=== PATIENT | male | born 1955 | race Caucasian/White ===

== ENCOUNTER 2018-11-30 14:38 | Emergency (ER) | payer OTHER, SELFPAY ==
[2017-02-08 13:41] VITALS: BMI 46.3
[2018-01-10 14:21] VITALS: BMI 47.5
[2018-11-30 14:39] VITALS: BP 137/81; PULSE 93; RESP 16; TEMP 36.7; O2SAT 95; BMI 47.5
--- NOTE | 2018-11-30 16:34 | ED.VISSUMM ---
- ER Visit Summary Date of Service: 11/30/18 Chief Complaint: Foot infection History of Present Illness: The patient is a 63 M with a history of diabetes. He presents for pain and swelling over his bilateral feet. He is concerned for an infection. He had these before and they require draining. He is having a lot of pain with weightbearing. Physical Examination: Afebrile and vital signs unremarkable. Patient has tenderness and swelling to his bilateral feet laterally at the fifth MTP joints. The overlying skin is normal in color. It is intact. There is no erythema or warmth. He has good range of motion, but the area is tender. He is neurovascular intact distally. Otherwise exam exam is unremarkable. Test Results: Bedside ultrasound showed no fluid collections. Emergency Department Course and Treatment: I do not believe the patient has an infection. He has no infectious symptoms. The skin is not red or warm. It is intact. Given his history of diabetes, I do not believe it is appropriate for me to incise or try to drain these areas. The ultrasound was reassuring. The patient likely has a bunionette. Patient will be treated with pain medicine. 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 Treatment Plan: As above Disposition: Discharge Impression: 1. Bilateral foot pain This note was generated with [employer] dictation software. It may contain incorrect words, spelling, and punctuation that were not noted in review of the chart prior to signing ED Disposition - Plan for ED Patient: Chief Complaint: Abscess Referrals: Fernie Valle MD [Primary Care Provider] -
--- NOTE | 2018-11-30 16:37 | ED.DCSUM_ITS ---
- ER Visit Summary Date of Service: 11/30/18 Chief Complaint: Foot infection History of Present Illness: The patient is a 63 M with a history of diabetes. He presents for pain and swelling over his bilateral feet. He is concerned for an infection. He had these before and they require draining. He is having a lot of pain with weightbearing. Physical Examination: Afebrile and vital signs unremarkable. Patient has tenderness and swelling to his bilateral feet laterally at the fifth MTP joints. The overlying skin is normal in color. It is intact. There is no erythema or warmth. He has good range of motion, but the area is tender. He is neurovascular intact distally. Otherwise exam exam is unremarkable. Test Results: Bedside ultrasound showed no fluid collections. Emergency Department Course and Treatment: I do not believe the patient has an infection. He has no infectious symptoms. The skin is not red or warm. It is intact. Given his history of diabetes, I do not believe it is appropriate for me to incise or try to drain these areas. The ultrasound was reassuring. The patient likely has a bunionette. Patient will be treated with pain medicine. 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 Treatment Plan: As above Disposition: Discharge Impression: 1. Bilateral foot pain This note was generated with [employer] dictation software. It may contain incorrect words, spelling, and punctuation that were not noted in review of the chart prior to signing ED Disposition - Plan for ED Patient: Chief Complaint: Abscess Referrals: Fernie Valle MD [Primary Care Provider] -
--- NOTE | 2018-11-30 16:37 | ED.DEP ---
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
[2018-11-30 16:50] VITALS: BP 136/76; BP 137/81; PULSE 86; PULSE 87; RESP 16; TEMP 36.9; O2SAT 98
== END 2018-11-30 16:51 | disposition home or self-care (01) ==
PROVIDERS: Emergency Provider Emergency Medicine; Family Provider Family Medicine; PCP Family Medicine
DX: M79.671 Pain in right foot (principal); M79.672 Pain in left foot; M79.89 Other specified soft tissue disorders; I25.10 Atherosclerotic heart disease of native coronary artery without angina pectoris; E11.9 Type 2 diabetes mellitus without complications; I10 Essential (primary) hypertension; E78.00 Pure hypercholesterolemia, unspecified; Z79.82 Long term (current) use of aspirin; Z79.4 Long term (current) use of insulin; Z79.84 Long term (current) use of oral hypoglycemic drugs; Z79.899 Other long term (current) drug therapy
CPT/HCPCS: 99282

== ENCOUNTER → 2019-01-19 05:45 | Outpatient (CLI) | payer OTHER, SELFPAY ==
[2017-02-08 13:41] VITALS: BMI 46.3
[2019-01-15 13:47] VITALS: BMI 48.1
--- NOTE | 2019-01-19 16:08 | STRESSREP ---
Stress Test Report Pharmacologic myocardial perfusion stress test. 63-year-old man with a history of chest pain. Medications: Norvasc, aspirin, metformin, Plavix, losartan. Stress protocol: Resting EKG demonstrates normal sinus rhythm with a rate of 77 bpm normal intervals are noted resting blood pressure 134/70 mmHg. 0.4 mg of regadenoson was infused per usual protocol followed by rapid intravenous saline flush injection continuous EKG monitoring was performed. Maximum heart rate attained was 89 bpm which was 55% maximum predicted heart rate the maximum workload was 1 metabolic equivalent. At rest there were no ST or T wave changes noted suggest abnormal flow reserve at peak infusion nonspecific ST-T wave changes were noted with no meet the criteria for abnormal flow reserve. Resting blood pressure 134/70 with a final blood pressure 130/60 mmHg. Peak blood pressure was 140/58 mmHg. Myocardial perfusion protocol. 15.0 mCi of technetium 99m sestamibi was injected at rest. 0.4 mg of regadenoson was infused per usual protocol peak infusion 45.0 mCi of technetium 99m sestamibi was injected stress images were obtained stress and rest images were reconstructed and compared in the short axis vertical long horizontal long axis. Gated images were also obtained per Perfusion SPECT analysis: Review of the stress images demonstrate normal uptake of tracer noted in all areas of the myocardium. The resting images similarly demonstrate normal uptake of tracer noted in all areas of the myocardium. No areas of reversibility are noted suggest ischemia no previous infarct is noted. Gated SPECT analysis: The gated ejection fraction is noted to be 59%. Conclusion: Normal pharmacologic myocardial perfusion stress test. Preserved ejection fraction.
== END ==
PROVIDERS: Family Provider Family Medicine; PCP Family Medicine; Referring Provider Internal Medicine Cardiovascular Disease; Visit Provider Internal Medicine Cardiovascular Disease
DX: I25.10 Atherosclerotic heart disease of native coronary artery without angina pectoris (principal); E11.9 Type 2 diabetes mellitus without complications; I10 Essential (primary) hypertension; E78.5 Hyperlipidemia, unspecified; R07.9 Chest pain, unspecified
CPT/HCPCS: 78452; 93017; A9500; A4216; J2785

== ENCOUNTER → 2019-07-20 13:20 | Outpatient (CLI) | payer OTHER, SELFPAY ==
[2017-02-08 13:41] VITALS: BMI 46.3
[2019-07-14 13:44] VITALS: BMI 50.4
== END ==
PROVIDERS: Family Provider Family Medicine; PCP Family Medicine; Referring Provider Family Medicine; Visit Provider Family Medicine
DX: Z00.00 Encounter for general adult medical examination without abnormal findings (principal)

== ENCOUNTER → 2019-08-06 07:38 | Outpatient (CLI) | payer OTHER, SELFPAY ==
[2017-02-08 13:41] VITALS: BMI 46.3
[2019-07-14 13:44] VITALS: BMI 50.4
--- NOTE | 2019-08-06 07:40 | ECHOCS_ITS ---
Reason For Study: DYSPNEA Procedure This was a 2D Doppler, Color Flow transthoracic echocardiogram. The study was technically difficult. Contrast injection was performed. Exam performed in department. Left Ventricle Normal LV size. Left ventricular systolic function is normal. The estimated ejection fraction is 65 %. Stage 2 diastolic dysfunction. No regional wall motion abnormalities noted. Right Ventricle Normal RV size. Normal systolic function. Atria The left atrium is moderately enlarged. The right atrium is moderately enlarged. Mitral Valve Normal mitral valve. Tricuspid Valve Normal tricuspid valve. Aortic Valve The aortic valve is not well visualized. Pulmonic Valve The pulmonic valve is not well visualized. Great Vessels Normal aortic root. The pulmonary artery is normal size. Normal inferior vena cava. Pericardium/Pleural No pericardial effusion. Medication 22 gauge I.V. with prn adaptor inserted into right arm. Diluted definity 4ml given slow IV push to enhance endocardial definition. MMode/2D Measurements & Calculations LVIDd: 5.8 cm IVSd: 1.2 cm Ao root diam: 3.9 cm LVIDs: 4.0 cm LVPWd: 1.2 cm RVDd: 4.4 cm FS: 31.1 % LAV(MOD-bp): 89.4 ml EDV(MOD-sp4): 213.7 ml EDV(MOD-sp2): 113.3 ml LAV(MOD-bp) Indexed: 32.3 ml/m2 ESV(MOD-sp4): 75.5 ml EF(MOD-sp2): 65.1 % LAV(MOD-sp2): 89.1 ml EF(MOD-sp4): 64.7 % LAV(MOD-sp4): 86.4 ml SV(MOD-sp4): 138.2 ml SV(MOD-sp2): 73.8 ml LA A4 area: 26.4 cm2 LA dimension(2D): 5.1 cm RA A4 area: 24.9 cm2 Time Measurements MV dec time: 0.22 sec Doppler Measurements & Calculations MV E max brayan: 100.6 cm/sec Lat Peak E' Brayan: 5.9 cm/sec Med Peak E' Brayan: 5.7 cm/sec MV A max brayan: 80.1 cm/sec E/E' lat: 17.1 E/E' med: 17.5 MV E/A: 1.3 MV V2 max: 121.1 cm/sec Ao V2 max: 129.5 cm/sec LV V1 max: 107.2 cm/sec MV max P.9 mmHg Ao max P.7 mmHg LV V1 max P.6 mmHg MV V2 mean: 71.0 cm/sec MV mean P.3 mmHg MV V2 VTI: 35.4 cm PA V2 max: 89.7 cm/sec MV P1/2t-pr_phl: 86.8 msec Interpretation Summary Normal LV size. Left ventricular systolic function is normal. The estimated ejection fraction is 65 %. Stage 2 diastolic dysfunction. Contrast injection was performed. Ordering Physician: Vic Jones/Grzegorz Ash Referring Physician: NICOLETTE ROBERTS Performed By: Sakina Plata, TESSACS, RVT
== END ==
PROVIDERS: Family Provider Family Medicine; PCP Family Medicine; Referring Provider Nurse Practitioner Family; Visit Provider Nurse Practitioner Family
DX: I25.10 Atherosclerotic heart disease of native coronary artery without angina pectoris (principal); R06.02 Shortness of breath; R06.00 Dyspnea, unspecified; R60.9 Edema, unspecified; Z95.5 Presence of coronary angioplasty implant and graft
CPT/HCPCS: 93306; Q9957; A4216; C8929

== ENCOUNTER → 2020-04-12 14:04 | Outpatient (CLI) | payer OTHER, SELFPAY ==
[2017-02-08 13:41] VITALS: BMI 46.3
[2020-02-09 10:25] VITALS: BMI 52.4
--- NOTE | 2020-04-12 | TISS_PTH ---
PATIENT: SHELDON HALL LOC: [facility] U#:[id number] AGE/SX: 69/M ROOM: RE04/12/[address]: Dr. Christos Roa DDS : 1955 BED: DIS: SPEC #: [id number] RECD: 04/12/20 11:58 STATUS: [place] REG #: [id number] GABE: 04/12/20 00:[address]: Christos Roa DEPT: SURGICAL PATHOLOGY RECD BY: Mac Solorzano ENTERED: 04/13/20 09:05 SP TYPE: Tissue Bx ESTRELLITA DR: Dr. 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 AM:carlita 04/14/20 MICROSCOPIC DESCRIPTION Slides are reviewed. GROSS DESCRIPTION Received in fixative is one container labeled with the patient's name and designated left buccal mucosa. The specimen consists of a polypoid fragment of pink-white mucosa. The specimen is inked, bisected and totally submitted in one cassette. / AM:carlita 04/13/20 TC:1 CPT: 34518
== END ==
PROVIDERS: PCP Family Medicine; Referring Provider Dentist Oral and Maxillofacial Surgery; Visit Provider Dentist Oral and Maxillofacial Surgery
DX: L98.9 Disorder of the skin and subcutaneous tissue, unspecified (principal)
CPT/HCPCS: 88305

== ENCOUNTER 2020-12-05 10:12 | Emergency (ER) | payer OTHER, SELFPAY ==
[2017-02-08 13:41] VITALS: BMI 46.3
[2020-02-09 10:25] VITALS: BMI 52.4
[2020-12-05 10:13] VITALS: BP 167/67; PULSE 96; RESP 26; TEMP 36.2; O2SAT 97; BMI 54.2
--- NOTE | 2020-12-05 10:27 | ED.VIS.GEN ---
History of Present Illness Chief Complaint: Shortness of Breath Informant: Patient Narrative: 64-year-old male presenting with elevated blood pressure. He states he was at physical therapy today when he noted his blood pressure. All he knows is that his blood pressure said 200. Patient had a mild headache at that time which has improved. His blood pressure is also improved. Physical therapy wanted him to come to the ER for evaluation. He has no chest pain. He does state that he gets dyspneic on exertion if he exerts himself hard and feels like this is what happened on the way into the ER. He does not have any shortness of breath currently. He denies fever, chills, myalgias, loss of taste or smell. - Past Medical History (1) Diabetes Status: Chronic (2) Sarcoidosis Status: Chronic (3) HTN (hypertension) Status: Chronic (4) HLD (hyperlipidemia) Status: Chronic Past Medical History - Allergies and Home Meds Allergies/Adverse Reactions: Allergies No Known Allergies Allergy (Verified 12/05/20 10:13) Primary Care Physician: Fernie Valle MD [Primary Care Provider] - Prior records reviewed: Yes Past Medical History: - - Reviewed in problem list Surgical History: noncontributory, - - lymph node bx, carpal tunnel. Lives: Spouse/ Significant Other Smoking Status: Never smoker Alcohol: None Drugs: None - Family History Paternal Family History: Family History (Last Updated 01/15/19 @ 13:57 by Nataly Oswald) Father CAD (coronary artery disease) Mother CAD (coronary artery disease) Brother CAD (coronary artery disease) Sister CAD (coronary artery disease) Family History: Reports: Heart Disease, - - early age Sibling Family History: Family History (Last Updated 01/15/19 @ 13:57 by Nataly Oswald) Father CAD (coronary artery disease) Mother CAD (coronary artery disease) Brother CAD (coronary artery disease) Sister CAD (coronary artery disease) Family History: Reports: Heart Disease - early age Review of Systems General: Denies: Chills, Fever, Sweats Eyes: Denies: Visual changes - bilaterally, Diplopia ENT: Denies: Rhinorrhea, Sore throat Cardiovascular: Reports: Heart racing. Denies: Chest pain Respiratory: Reports: Dyspnea on exertion - At baseline per patient. Denies: Cough, Sputum Gastrointestinal: Denies: Abdominal pain, Nausea Musculoskeletal: Denies: Myalgias, Arthralgias Skin: Denies: Rash, Abscess Neurological: Reports: Headache. Denies: Parasthesia, Numbness Psych: Denies: Depression, Anxiety Physical Exam Vital Signs/Narrative: Vital Signs Temp Pulse Resp BP Pulse Ox 12/05/20 10:13 97.1 F L 96 26 H 167/67 H 97 Inital Vital Signs reviewed: Yes General: Well nourished, No Acute Distress Head: Normocephalic, Atraumatic Eyes: Perrl, EOMI ENT: Moist mucous membranes, No rhinorrhea Cardiovascular: Regular rate, Regular rhythm Respiratory: No distress, CTA bilaterally Extremities: Nontender, No edema Skin: Normal color, No rash. Negative for: Cyanosis, Diaphoresis Neurological: Alert, Oriented x3, Cranial nerves II-XII grossly intact Psychological: Normal affect, Normal Mood Diagnostic/Tx/Re-eval - Medical Decision Making 65-year-old male presenting with sensation of heart racing and elevated blood pressure from his physical therapy appointment. His blood pressure has improved significantly. He states he only has a mild headache currently. Patient states he probably just panicked. Patient is offered lab work however since he feels better at this time he declines. Patient did state that he had some shortness of breath upon walking into the ER but he states that this is his baseline if he ambulates too fast. At this time patient will be discharged home. He is given return precautions. Patient stable for discharge. Impression: 1. Elevated blood pressure resolved 2. Headache ED Disposition - Plan for ED Patient: Disposition: Home or Assisted Living Instructions: ED Hypertension, Established Referrals: Fernie Valle MD [Primary Care Provider] -
[2020-12-05 10:49] VITALS: BP 137/60; PULSE 83; RESP 18; O2SAT 99
== END 2020-12-05 11:32 | disposition home or self-care (01) ==
LOC: ED 11:32
PROVIDERS: Emergency Provider Student in an Organized Health Care Education/Training Program; PCP Physician Assistant
DX: I10 Essential (primary) hypertension (principal); R51.9 Headache, unspecified; E11.9 Type 2 diabetes mellitus without complications; E78.5 Hyperlipidemia, unspecified; Z79.4 Long term (current) use of insulin; Z79.82 Long term (current) use of aspirin; Z79.02 Long term (current) use of antithrombotics/antiplatelets; Z82.49 Family history of ischemic heart disease and other diseases of the circulatory system
CPT/HCPCS: 99282

== ENCOUNTER → 2021-02-09 11:13 | Outpatient (CLI) | payer OTHER, SELFPAY ==
[2017-02-08 13:41] VITALS: BMI 46.3
[2021-02-09 09:41] VITALS: BMI 55.3
--- NOTE | 2021-02-09 11:20 | RAD_ITS ---
STUDY: X-RAY CHEST REASON FOR EXAM: Male, 65 years old. for heart cath TECHNIQUE: PA and lateral views of the chest. COMPARISON: 01/26/2017 FINDINGS: The lungs are clear and expanded. There is no demonstrated pleural abnormality. Normal size heart. Normal mediastinum and paulo. Normal visualized pulmonary arteries. Normal visualized aortic arch and descending thoracic aorta. There are diffuse degenerative changes of the visualized thoracic spine. Normal visualized ribs, clavicles, and shoulders. There is no demonstrated abnormality of the visualized soft tissue structures of the upper abdomen. RAD/Chest PA and Lateral IMPRESSION: No acute cardiopulmonary process. Electronically Signed: Steven Painting MD (Brooks) at 8:49 EST , Service support ,
[2021-02-09 12:16] LABS: Absolute Lymphocyte Count 1.45 X10^3/uL (0.83-4.51); Absolute Neutrophil Count 4.4 X10^3/uL (2.0-7.7); Basophil# 0.12 X10^3/uL; Basophil% 1.6 % (0-1); Eosinophil# 0.31 X10^3/uL; Eosinophils% 4.2 % (0-5); Hemoglobin 9.8 g/dL (13.0-16.5); Lymphocyte # 1.45 X10^3/ul (4.0); Lymphocyte % 19.5 % (19-41); Mean Corp Hgb Conc 29.7 g/dL (32-36); Mean Corpuscular Hgb 26.4 pg (27.0-32.0); Mean Corpuscular Volume 88.9 fL (80-94); Mean Platelet Vol. 9.9 fl (6.2-12.0); Monocyte# 1.07 X10^3/uL; Monocyte% 14.4 % (0-10); NRBC Flagged by Analyzer 0 % (0-5); Neutrophil # 4.41 X10^3/uL (2.7-7.7); Neutrophil % 59.2 % (47-70); Platelet Count 260 K/mm3 (150-450); RBC Distribution Width CV 15.1 % (11.6-14.6); RBC Distribution Width SD 49.1 fl (35.1-43.9); Red Blood Count 3.71 M/mm3 (4.6-6.2); White Blood Count 7.4 K/mm3 (4.4-11.0)
[2021-02-09 12:48] LABS: Anion Gap 5 (5-15); BUN 18 mg/dL (7-18); BUN/Creat Ratio 20.8 RATIO (10-20); Calcium,Total 9.6 mg/dL (8.5-10.1); Chloride 106 mmol/L (98-107); Creatinine, Serum 0.86 mg/dL (0.70-1.30); EST Glomerular Filtration Rate 95 mL/min (>60); Est Glom Filt Rate - Afr Amer 115 mL/min (>60); Glucose 66 mg/dL (74-106); Potassium 4.2 mmol/L (3.5-5.1); Sodium Level 140 mmol/L (136-145)
== END ==
PROVIDERS: PCP Physician Assistant; Referring Provider Internal Medicine Cardiovascular Disease; Visit Provider Internal Medicine Cardiovascular Disease
DX: R07.9 Chest pain, unspecified (principal); Z95.5 Presence of coronary angioplasty implant and graft
CPT/HCPCS: 36415; 71046; 80048; 85025

== ENCOUNTER 2021-02-14 06:59 | Day surgery (SDC) | payer OTHER, SELFPAY ==
[2017-02-08 13:41] VITALS: BMI 46.3
[2021-02-09 09:41] VITALS: BMI 55.3
[2021-02-10 13:30] VITALS: BMI 55.3
[2021-02-14 07:13] LABS: Hematocrit 30.2 % (40-54); Hemoglobin 8.8 g/dL (13.0-16.5); Mean Corp Hgb Conc 29.1 g/dL (32-36); Mean Corpuscular Hgb 26.6 pg (27.0-32.0); Mean Corpuscular Volume 91.2 fL (80-94); Mean Platelet Vol. 9.9 fl (6.2-12.0); Platelet Count 223 K/mm3 (150-450); RBC Distribution Width CV 15.4 % (11.6-14.6); RBC Distribution Width SD 51.7 fl (35.1-43.9); Red Blood Count 3.31 M/mm3 (4.6-6.2); White Blood Count 6.9 K/mm3 (4.4-11.0)
--- NOTE | 2021-02-14 08:49 | CL.D_ITS ---
Patient Name: SHELDON HALL Study Date: 02/14/2021 Performing: Grzegorz Ash MD Ht: 72.04 inches 183 cm : 1955 Wt: 407.86 lbs 185 kg Age: 65 Gender: male BSA: 2.89 PROCEDURE(S) PERFORMED DB77-DYT/COR/LV CLINICAL PROFILE AND INDICATIONS Indications: Worsening Angina Heart Failure: None Stress/Imaging Stress/Image Study Performed: No CAD Presentations: Stable angina. 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 Previously placed stent in the diagonal v essel is patent. Rest of the vessels appeared to be free of significant disease. Preserved ejection fraction. RECOMMENDATIONS We will recommend discontinuing clopidogrel at this time and investigating source of anemia with uppe r and lower endoscopy. DESCRIPTION OF PROCEDURE The patient arrived to the procedure lab. The risks and benefits of the procedure as well as a full d escription of our services here and current unavailability of surgical backup were fully explained to the patient and/or their significant other prior to the catheterization. The Timeout was completed, verifying the correct patient and procedure. The patient's procedural site was prepped and draped in the usual fashion. Local anesthetic was given subcutaneously to right radial region with Lidocaine 2% . Using a modified Seldinger technique, arterial access was obtained via the right radial artery, a 6 Fr sheath was inserted. Left Coronary Artery selective angiography was performed in multiple views u sing a 5 Fr. 4.0 [place] catheter. Right Coronary Artery selective angiography was then performed in mu ltiple views using a 5 Fr. 4.0 [place] catheter. Left Ventriculography was performed in BROOKS projection using a 5 Fr. Pigtail catheter. LV to AO pullback pressures were then recorded.The arterial sheath was pulled and a TR Band was applied for hemostasis 10cc air CORONARY ANGIOGRAPHY DOMINANCE: Right Dominant LEFT HEART ASSESSMENT Left Ventricular Ejection Fraction: by LV Gram 60 % Normal LV wall motion Normal Left Ventricular systolic function LEFT MAIN: Angiographically normal LEFT ANTERIOR DESCENDING ARTERY: MID LAD: Diffusely diseased up to 60 % DIAGONAL 1: Proximal - Previously placed stent is patent CIRCUMFLEX ARTERY: Mild luminal irregularities less than 30% RIGHT CORONARY ARTERY: No significant disease noted COMPLICATIONS No Complications PROCEDURE MEDICATIONS Fentanyl 50 mcg IV Versed 1 mg IV Oxygen: 2 L/min via nasal cannula Heparin diluted in 23cc Heparinized saline. Patient given 10cc IA of this solution. 02/14/2021 08:13: 54 Verapamil 2.5mg, Ntg 100mcgs, 2000 units of Heparin diluted in 23cc Heparinized saline. Patient give n 10cc IA of this solution. 02/14/2021 08:13:54 SUMMARY OF HEMODYNAMIC DATA Time AIR REST ECG 07:29:17 Art 131/53 (72) 08:15:20 AO 106/52 (74) SA 08:22:19 LV 115/13, 22 08:30:55 Signed By Grzegorz Ash MD On 02/14/2021 08:48:25 Grzegorz Ash MD
== END 2021-02-14 10:30 | disposition home or self-care (01) ==
LOC: CLSP 07:01
PROVIDERS: PCP Physician Assistant; Referring Provider Internal Medicine Cardiovascular Disease; Visit Provider Internal Medicine Cardiovascular Disease
DX: I25.118 Atherosclerotic heart disease of native coronary artery with other forms of angina pectoris (principal); E78.5 Hyperlipidemia, unspecified; I10 Essential (primary) hypertension; G47.33 Obstructive sleep apnea (adult) (pediatric); E11.9 Type 2 diabetes mellitus without complications; Z79.899 Other long term (current) drug therapy; Z79.02 Long term (current) use of antithrombotics/antiplatelets; Z79.4 Long term (current) use of insulin; E66.01 Morbid (severe) obesity due to excess calories; Z68.42 Body mass index [BMI] 45.0-49.9, adult
CPT/HCPCS: 36415; 85027; 93458; 99152; 99153; J7040; Q9967; C1769; C1894